=== PATIENT | male | born 1995 | race Caucasian/White ===

== ENCOUNTER 2018-01-16 05:36 | Emergency (ER) | payer OTHER ==
[~2018-01-16] VITALS: Ht 162.6 cm; Wt 67.0 kg
[2018-01-16 05:47] VITALS: TEMP 36.8; O2SAT 97; Ht 162.6 cm; Wt 67.0 kg
--- NOTE | 2018-01-16 06:42 | EMERGENCY ROOM VISIT NOTE ---
History First contact with patient: 06:19 Chief Complaint: ALCOHOL OVERDOSE Stated Complaint: ALCOHOL OVERDOSE Nursing Triage Summary: Patient arrived via EMS. EMS report patient was found sleeping in a commons on campus. Patient reports drinking tonight. Patient minimally answering questions. Patient refuses to allow staff to secure wallet, rings, watch, or cell phone and is keeping them at bedside. History of Present Illness The patient is a 22 year old male who presents to the Emergency Room with complaints of alcohol intoxication. Patient uncooperative with staff. Patient admits to drinking earlier tonight. Pt states he was trying to get home. Denies injury or complaints. Review of Systems See HPI for pertinent positives & negatives. A total of 10 systems reviewed and were otherwise negative. Family History No pertinent family history Social History Smoking Status: Current Every Day Smoker Marital Status: single Housing Status: lives with roommate Occupation Status: [employer] student Current/Historical Medications No Active Prescriptions or Reported Meds Physical Exam Vital Signs Date Time Temp Pulse Resp B/P (MAP) Pulse Ox O2 Delivery O2 Flow Rate FiO2 01/16/18 09:14 102 18 126/92 98 Room Air 01/16/18 08:22 92 18 95 Room Air 01/16/18 07:18 101 01/16/18 06:55 95 18 119/46 94 Room Air 01/16/18 05:47 125 01/16/18 05:47 36.8 109 16 138/74 97 Room Air 01/16/18 05:47 97 Room Air Physical Exam GENERAL: alert, well appearing, well nourished, no distress, non-toxic, smells of EtOH HEAD: NC/AT EYE EXAM: normal conjunctiva, PERRL and EOM's grossly intact OROPHARYNX: no exudate, no erythema, lips, buccal mucosa, and tongue normal and mucous membranes are moist NECK: supple, no nuchal rigidity, no adenopathy, non-tender LUNGS: Clear to auscultation. Normal chest wall mechanics, no w/r/r HEART: no murmurs, S1 normal and S2 normal ABDOMEN: abdomen soft, non-tender, normo-active bowel sounds, no masses, no rebound or guarding. BACK: Back is symmetrical on inspection and there is no deformity, no midline tenderness, no CVA tenderness. SKIN: no rashes and no bruising UPPER EXTREMITIES: upper extremities are grossly normal. No obvious deformities , nml pulses. LOWER EXTREMITIES: No pitting edema. No obvious deformities. Nml pulses. NEURO EXAM: Patient appears intoxicated, moving all extremities spontaneously Medical Decision & Procedures Laboratory Results 01/16/18 07:42 Test 01/16/18 07:42 Anion Gap 8.0 mmol/L (3-11) Est Creatinine Clear Calc Drug Dose 85.9 ml/min Estimated GFR () 106.7 Estimated GFR (Non- 92.1 BUN/Creatinine Ratio 18.3 (10-20) Calcium Level 8.4 mg/dl (8.5-10.1) Ethyl Alcohol mg/dL 260.9 mg/dl (0-3) ED Course 0900: Patient now awake and alert, tolerating sips of p.o. at bedside. Patient denies any complaints or concerns at this time. Denies any injury last night. States he made it all the way home and does not know why police sent him to the emergency room. Pt was found in common area of [facility]. Patient denies any trauma or injury last night. Patient states he has a sober friend coming to pick him up. Medical Decision The patient's history was concerning for altered mental status and a possible alcohol overdose. Differential diagnosis: Etiologies such as alcohol intoxication, toxicologic, infection, hypoglycemia, electrolyte abnormalities, cardiac sources, intracerebral event, neurologic, as well as others were entertained. Pt well appearing here despite intoxication. No evidence or hx of trauma. Pt denied any new complaints or evolving symptoms with improved sobriety. Pt called friend who he was discharged to as a safe/sober ride. VS stable throughout. I do not suspect occult traumatic injury. Pt ambulated with steady gait and tolerating po prior to DC. Discussed with patient responsible use of alcohol. Discussed sx to watch/return for, he verbalized understanding and was agreeable with plan. Medication Reconcilliation Current Medication List: was personally reviewed by me Blood Pressure Screening Patient's blood pressure: Normal blood pressure Impression Primary Impression: Alcoholic intoxication Departure Information Dispostion Home / Self-Care Prescriptions No Active Prescriptions or Reported Meds Referrals No Doctor, Assigned (PCP) Patient Instructions [facility] Additional Instructions Please drink responsibly and in a safe location. Do not drink and drive. Please drink plenty of water today to stay well-hydrated. If you have any new or concerning symptoms, please return to the emergency room. Problem Qualifiers Primary Impression: Alcoholic intoxication Complication of substance-induced condition: uncomplicated Qualified Codes: F10.920 - Alcohol use, unspecified with intoxication, uncomplicated
[2018-01-16 08:25] LABS: CALCIUM 8.4 mg/dl (8.5-10.1); CREATININE 1.12 mg/dl (0.60-1.40)
[2018-01-16 09:14] VITALS: BP 126/92; PULSE 102; O2SAT 98
== END 2018-01-16 09:45 | disposition home or self-care (01) ==
LOC: EDBD 05:36 → C.EDB 05:39
DX: F10.920 Alcohol use, unspecified with intoxication, uncomplicated (principal); F17.200 Nicotine dependence, unspecified, uncomplicated